=== PATIENT | male | born 1990 | race African-American/Black ===

== ENCOUNTER → 2016-08-28 | Outpatient (REF) | payer OTHER | LOC: M SFHCLERA 20:23 | PROVIDERS: ATTEND Nurse Practitioner Family | DX: R30.0 Dysuria (principal) ==

== ENCOUNTER 2017-04-10 22:25 | Emergency (ER) | payer OTHER ==
[~2017-04-10] VITALS: Ht 180.3 cm; Wt 100.0 kg
[2017-04-10] MEDS ORDERED: MAGIC MOUTHWASH SUSPENSION BTL SS ONE ×2 (23:15→23:30)
[2017-04-10] MEDS ORDERED: ACETAMINOPHEN 325 MG TAB PO ONE (23:15)
[2017-04-10] MEDS ORDERED: ONDANSETRON 4 MG ORAL DISINTEGRATING TAB (S0181) PO ONE (23:15)
[2017-04-10] MEDS ORDERED: diphenhydrAMINE 50 MG CAP PO ONE (23:15)
[2017-04-10] MEDS ORDERED: predniSONE 20 MG TAB PO ONE (23:15)
[2017-04-10 23:49] VITALS: BP 125/58
[2017-04-10] MEDS ORDERED: PRED20TA PO (23:58)
[2017-04-10] MEDS ORDERED: MAGICMW SSP (23:58)
== END 2017-04-11 00:03 | disposition home or self-care (01) ==
LOC: M ED 22:25
DX: J02.0 Streptococcal pharyngitis (principal); R51 Headache; F17.200 Nicotine dependence, unspecified, uncomplicated; Z88.6 Allergy status to analgesic agent; Z91.013 Allergy to seafood